=== PATIENT | female | born 1970 | race African-American/Black ===

== ENCOUNTER → 2017-05-27 | Outpatient (CLI) | payer OTHER ==
[~2017-05-27] MED LIST: ATHLETE S FOOT TP; ATHLETE'S FOOT60 GM TP; CEPHALEXIN 500500 M3 PO; CLEOCIN HCL150 MG PO; IBUPROFEN 800800 M1 PO; IBUPROFEN 800800 MG PO; LIPITOR10 MG PO; METFORMIN HCL500 MG PO; NORCO 5-325 TA1 EAC1 PO; ROBAXIN500 MG PO; TRAMADOL 50 MG50 MG PO
== END ==
LOC: M.CT 08:42
DX: Z12.31 Encounter for screening mammogram for malignant neoplasm of breast (principal); J84.10 Pulmonary fibrosis, unspecified

== ENCOUNTER → 2017-06-02 | Outpatient (CLI) | payer OTHER | LOC: M.RAD 13:13 | DX: R91.1 Solitary pulmonary nodule (principal); Z88.1 Allergy status to other antibiotic agents ==

== ENCOUNTER → 2018-02-07 | Outpatient (CLI) | payer OTHER ==
[2018-02-07 07:16] LABS: ALBUMIN 3.4 g/dL (3.4-5.0); ALKALINE PHOSPHATASE 105 U/L (46-116); CHOLESTEROL 163 mg/dL (<200); DIRECT BILIRUBIN 0.1 mg/dL (<0.1-0.3); HDL CHOLESTEROL 61 mg/dL (>40); LDL CHOLESTEROL 92 mg/dL (<100); SERUM ASSESSMENT Clear; SGOT 22 U/L (15-37); SGPT 34 U/L (30-65); TC:HDL 2.7 Ratio (Not establshd); TOTAL BILIRUBIN 0.4 mg/dL (<0.1-1.0); TOTAL PROTEIN 6.7 g/dL (6.4-8.2); TRIGLYCERIDE 54 mg/dL (<150); VLDL 11 mg/dL (<40)
== END ==
LOC: M.LAB 06:20
PROVIDERS: Nurse Practitioner
DX: E78.00 Pure hypercholesterolemia, unspecified (principal)

== ENCOUNTER 2018-06-02 12:54 | Emergency (ER) | payer OTHER ==
[~2018-06-02] VITALS: Ht 162.6 cm; Wt 116.8 kg
[2018-06-02] MEDS ORDERED: LOPRESSOR50 PO (13:01)
[2018-06-02] MEDS ORDERED: HYDROCHLOROTH12.5 M1 PO (13:01)
[2018-06-02] MEDS ORDERED: LIPITOR 20 MG T20 M1 PO (13:01)
[2018-06-02] MEDS ORDERED: COZAAR 25 MG TA25 M2 PO (13:02)
[2018-06-02 13:27] LABS: ABSOLUTE BASOPHILS 0.1 thou/uL (0.0-0.2); ABSOLUTE EOSINOPHILS 0.1 thou/uL (0.0-0.7); ABSOLUTE LYMPHOCYTES 2.8 thou/uL (0.8-5.3); ABSOLUTE MONOCYTES 0.6 thou/uL (0.0-1.2); BASOPHILS 1.4 %; EOSINOPHILS 1.3 %; HEMATOCRIT 40.7 % (37.0-47.0); HEMOGLOBIN 13.4 gm/dL (12.0-15.0); LYMPHOCYTES 36.4 %; MCH 29.8 pg (26.0-34.0); MCHC 32.9 g/dL (28.0-37.0); MCV 90.8 fL (80.0-100.0); MONOCYTES 7.8 %; MPV 7.5 fl. (7.2-11.1); NUCLEATED RBCS 0 /100WBC; PLATELET COUNT* 255 thou/uL (150-400); POLYS 53.1 %; RBC 4.48 mil/uL (4.20-5.00); RDW-CV 13.8 % (10.5-14.5); WBC 7.6 thou/uL (4.0-11.0)
[2018-06-02 13:38] LABS: APTT 29.4 Seconds (25.0-31.3)
[2018-06-02 13:45] LABS: ANION GAP 6 mmol/L (7-16); BUN 11 mg/dL (7-18); CALCIUM 8.7 mg/dL (8.5-10.1); CHLORIDE 105 mmol/L (98-107); CO2 30 mmol/L (21-32); CREATININE 1.3 mg/dL (0.6-1.3); GLUCOSE 110 mg/dL (70-99); POTASSIUM 3.7 mmol/L (3.5-5.1); SODIUM 141 mmol/L (136-145); TROPONIN-I LEVEL <0.06 ng/mL (<0.06)
[2018-06-02 13:50] LABS: ALBUMIN 3.7 g/dL (3.4-5.0); ALKALINE PHOSPHATASE 120 U/L (46-116); CK-MB MASS 1.1 ng/mL (<0.5-3.6); LIPASE 160 U/L (73-393); MAGNESIUM 1.8 mg/dL (1.8-2.4); NT-PRO BRAIN NAT PEPTIDE 211 pg/mL (<300); SGOT 20 U/L (15-37); SGPT 33 U/L (30-65); TOTAL BILIRUBIN 0.2 mg/dL (<0.1-1.0); TOTAL PROTEIN 7.7 g/dL (6.4-8.2)
[2018-06-02 14:01] VITALS: BP 128/77
--- NOTE | 2018-06-02 15:18 | EKG ---
[place] [address] ELECTROCARDIOGRAM REPORT Name: DIMITRIOS MCCURDY Room: [facility]#: [id number] Admission: 06/02/18 Attend Phys: Discharge: 06/02/18 Date of : 70 Report #: [id number] THIS REPORT FOR: //name// [facility] ED Test Date: 2018-06-02 Test Time: 12:59:38 Pat Name: DIMITRIOS MCCURDY Department: Room: Gender: F [employer] Maintainer Helper: Judah GÓMEZ : 1970 Requested By: Carlitos Molina Order Number: [id number] MD: Cecil Zelaya Measurements Intervals [place] Rate: 71 P: 21 TX: 143 QRS: 10 QRSD: 99 T: 26 QT: 449 QTc: 488 Interpretive Statements Sinus rhythm Probable left ventricular hypertrophy Borderline prolonged QT interval Baseline wander in lead(s) V1,V2 Compared to ECG 06/17/2016 20:59:12 Sinus tachycardia no longer present Electronically Signed On 06-02-2018 15:18:17 CDT by Cecil Zelaya [email or web address] <ELECTRONICALLY SIGNED> By: Cecil Zelaya MD, [facility] 06/02/18 1518 [id number] [id number] Cecil Zelaya MD, [facility] /EPI
== END 2018-06-02 14:01 | disposition home or self-care (01) ==
LOC: M.ERS 12:54
PROVIDERS: Family Medicine
DX: R07.89 Other chest pain (principal); I10 Essential (primary) hypertension; Z77.22 Contact with and (suspected) exposure to environmental tobacco smoke (acute) (chronic); Z88.2 Allergy status to sulfonamides; Z88.8 Allergy status to other drugs, medicaments and biological substances; Z90.710 Acquired absence of both cervix and uterus

== ENCOUNTER 2018-09-21 09:41 | Emergency (ER) | payer OTHER ==
[~2018-09-21] VITALS: Ht 162.6 cm; Wt 108.9 kg
[~2018-09-21 09:41] MED LIST changes: +COZAAR 25 MG TA25 M2 PO; +HYDROCHLOROTH12.5 M1 PO; +LIPITOR 20 MG T20 M1 PO; +LOPRESSOR50 PO
[2018-09-21 10:14] LABS: URINE BILIRUBIN NEGATIVE (Negative); URINE BLOOD NEGATIVE (Negative); URINE CLARITY CLEAR; URINE COLOR YELLOW; URINE GLUCOSE-RANDOM NEGATIVE (Negative); URINE KETONES NEGATIVE (Negative); URINE LEUKOCYTES-REFLEX NEGATIVE (Negative); URINE NITRITE-REFLEX NEGATIVE (Negative); URINE PROTEIN NEGATIVE (Negative); URINE SPECIFIC GRAVITY >= 1.030 (1.005-1.030); URINE UROBILINOGEN 0.2 E.U./dl (0.2-1.0)
[2018-09-21] MEDS ORDERED: TORADOL 10 MG T10 MG PO (10:22)
[2018-09-21] MEDS ORDERED: NORCO 5-325 TA1 EAC1 PO (10:22)
[2018-09-21] MEDS ORDERED: CYCLOBENZAPRINE5 MG PO (10:22)
[2018-09-21 10:32] VITALS: BP 143/73
== END 2018-09-21 10:37 | disposition home or self-care (01) ==
LOC: M.ERS 09:41
PROVIDERS: Personal Emergency Response Attendant
DX: M54.5 Low back pain (principal); I10 Essential (primary) hypertension; Z77.22 Contact with and (suspected) exposure to environmental tobacco smoke (acute) (chronic); Z88.2 Allergy status to sulfonamides; Z88.1 Allergy status to other antibiotic agents; Z90.710 Acquired absence of both cervix and uterus

== ENCOUNTER → 2018-09-28 | Outpatient (CLI) | payer OTHER ==
[~2018-09-28] MED LIST changes: +CYCLOBENZAPRINE5 MG PO; +TORADOL 10 MG T10 MG PO
== END ==
LOC: M.RAD 09:52
DX: M54.5 Low back pain (principal); Z88.2 Allergy status to sulfonamides

== ENCOUNTER 2019-12-01 16:23 | Emergency (ER) | payer OTHER, BC ==
[~2019-12-01] VITALS: Ht 162.6 cm; Wt 104.3 kg
[2019-12-01 17:05] LABS: ABSOLUTE BASOPHILS 0.1 thou/uL (0.0-0.2); ABSOLUTE EOSINOPHILS 0.1 thou/uL (0.0-0.7); ABSOLUTE LYMPHOCYTES 3.2 thou/uL (0.8-5.3); ABSOLUTE MONOCYTES 0.5 thou/uL (0.0-1.2); ABSOLUTE NEUTROPHILS 4.6 thou/uL (1.6-8.1); BASOPHILS 1.2 %; EOSINOPHILS 1.1 %; HEMATOCRIT 42.2 % (37.0-47.0); HEMOGLOBIN 13.6 gm/dL (12.0-15.0); LYMPHOCYTES 37.4 %; MCH 29.2 pg (26.0-34.0); MCHC 32.1 g/dL (28.0-37.0); MCV 90.9 fL (80.0-100.0); MONOCYTES 6.4 %; MPV 7.1 fl. (7.2-11.1); NUCLEATED RBCS 0 /100WBC; PLATELET COUNT* 234 thou/uL (150-400); POLYS 53.9 %; RBC 4.65 mil/uL (4.20-5.00); WBC 8.5 thou/uL (4.0-11.0)
[2019-12-01 17:11] LABS: CREATININE 1.1 mg/dL (0.6-1.3); POTASSIUM 3.8 mmol/L (3.5-5.1)
[2019-12-01 17:12] LABS: PROTIME 10.2 Seconds (9.20-11.50)
[2019-12-01 17:16] LABS: TOTAL BILIRUBIN 0.3 mg/dL (<0.1-1.0); TOTAL PROTEIN 7.8 g/dL (6.4-8.2)
[2019-12-01 18:59] VITALS: BP 150/70
--- NOTE | 2019-12-02 10:34 | EKG ---
[place] [address] ELECTROCARDIOGRAM REPORT Name: KAZDIMITRIOS SINGER Room: [facility]#: [id number] Admission: 12/01/19 Attend Phys: Discharge: 12/01/19 Date of : 70 Date of Service: 12/01/19 1631 Report #: [id number] THIS REPORT FOR: //name// [facility] ED Test Date: 2019-12-01 Test Time: 16:31:17 Pat Name: DIMITRIOS MCCURDY Department: Room: Gender: Title I Director: [facility] : 1970 Requested By: Sandra Allen Order Number: [id number] MD: Emil Hutchinson Measurements Intervals [place] Rate: 61 P: 26 DC: 148 QRS: 12 QRSD: 97 T: -13 QT: 420 QTc: 423 Interpretive Statements Sinus rhythm Borderline T abnormalities, inferior leads Compared to ECG 06/02/2018 12:59:38 no change Electronically Signed On 12-02-2019 10:33:59 CDT by Emil Hutchinson [email or web address] <ELECTRONICALLY SIGNED> By: Emil Hutchinson MD, FACC 12/02/19 1033 1631 1631 Emil Hutchinson MD, [facility] /EPI
== END 2019-12-01 19:00 | disposition home or self-care (01) ==
LOC: M.ERS 16:23
PROVIDERS: Personal Emergency Response Attendant
DX: I16.0 Hypertensive urgency (principal); I10 Essential (primary) hypertension; Z77.22 Contact with and (suspected) exposure to environmental tobacco smoke (acute) (chronic); Z88.1 Allergy status to other antibiotic agents; Z88.2 Allergy status to sulfonamides; Z90.710 Acquired absence of both cervix and uterus